=== PATIENT | male | born 1980 | race Caucasian/White ===

== ENCOUNTER 2016-10-28 16:00 | Emergency (ER) ==
[2016-10-28 17:02] VITALS: BP 138/75; TEMP 98; BMI 25.8
--- NOTE | 2016-10-28 18:23 | ED.PDOC ---
General ED Provider: Dr. THELMA WHIPPLE JR Chief Complaint: Eye Problem Stated Complaint: WOKE UP THIS MORNING WITH LEFT LOWER LID EYE DISCOMFORT. HAS BEEN TREATED IN THE PAST FOR LEFT EYE STYE Time Seen by Physician: 18:23 Mode of Arrival: Walk-In Information Source: Patient Exam Limitations: No limitations Nursing and Triage Documentation Reviewed and Agree: No Review of Systems - Review Of Systems Constitutional: Reports: No symptoms Eyes: Reports: Drainage, Pain, Other Ears, Nose, Mouth, Throat: Reports: No symptoms Respiratory: Reports: No symptoms Cardiac: Reports: No symptoms GI: Reports: No symptoms : Reports: No symptoms Musculoskeletal: Reports: No symptoms Skin: Reports: No symptoms Neurological: Reports: No symptoms Endocrine: Reports: No symptoms Hematologic/Lymphatic: Reports: No symptoms All Other Systems: Other Past Medical History - Past Medical History Previously Healthy: Yes Endocrine: Reports: None Cardiovascular: Reports: None Respiratory: Reports: None Hematological: Reports: None Gastrointestinal: Reports: None Genitourinary: Reports: None Neuro/Psych: Reports: None Musculoskeletal: Reports: None Cancer: Reports: None - Surgical History General Surgical History: Reports: Unknown - Family History Family History: Reports: Unknown - Social History Smoking Status: Never smoker Hx Substance Use: No Alcohol Screening: Occasionally - Immunizations Tetanus Shot up to Date: Yes Physical Exam - Physical Exam Appearance: Well-appearing Pain Distress: Moderate Eyes: MARINA, EOMI, Conjunctiva inflammed (note swelling of eyelid) ENT: Ears normal, Nose normal, Oropharynx normal Neck: Supple Respiratory: Airway patent, Breath sounds clear, Breath sounds equal, Respirations nonlabored Cardiovascular: RRR, Pulses normal, No rub, No murmur GI/: Soft, Nontender, No masses, Bowel sounds normal, No Organomegaly Musculoskeletal: Normal strength, ROM intact, No edema, No calf tenderness Skin: Warm, Dry, Normal color Neurological: Sensation intact, Motor intact, Reflexes intact, Cranial nerves intact, Alert, Oriented Psychiatric: Affect appropriate, Mood appropriate Critical Care Note - Critical Care Note Total Time (mins): 0 Course - Course Vital Signs: Temp Pulse Resp BP Pulse Ox 10/28/16 16:00 98.0 F 70 20 138/75 99 Departure - Departure Time of Disposition: 18:23 Disposition: HOME SELF-CARE Discharge Problem: Hordeolum externum (stye) Instructions: Stye (ED) Condition: Good Pt referred to PMD for follow-up: Yes Additional Instructions: antibiotic until gone warm soaks four times a day Prescriptions: Hydrocodone Bit/Acetaminophen [[place] 5-325] 1 - 2 tab PO Q6HR PRN #12 tablet PRN Reason: pain Naproxen [Naprosyn] 500 mg PO Q12HR PRN #30 tablet PRN Reason: PAIN Doxycycline Monohydrate [Monodox] 100 mg PO BID #20 capsule Allergies/Adverse Reactions: Allergies No Known Allergies Allergy (Unverified 10/28/16 17:02) Home Medications: Ambulatory Orders 1 [No Reported Medications] 10/28/16 Doxycycline Monohydrate [Monodox] 100 mg PO BID #20 capsule 10/28/16 Hydrocodone Bit/Acetaminophen [[place] 5-325] 1 - 2 tab PO Q6HR PRN #12 tablet Naproxen [Naprosyn] 500 mg PO Q12HR PRN #30 tablet 10/28/16
== END 2016-10-28 18:34 | disposition home or self-care (01) ==
LOC: ED 16:00
DX: H00.015 Hordeolum externum left lower eyelid (principal)
CPT/HCPCS: 99282